=== PATIENT | female | born 1980 | race Asian ===

== ENCOUNTER → 2020-06-11 | Day surgery (SDC) | payer BC ==
--- NOTE | 2020-06-11 09:07 | MMO ---
MAMMOGRAPHIC GUIDED STEREOTACTIC BREAST BIOPSY PREPROCEDURE DIAGNOSIS: Right breast calcifications PROCEDURE: 1. Stereotactic biopsy of right breast calcifications with vacuum assistance 2. Specimen radiograph 3. Post procedure mammogram FILLER FEEDER: Salomon ANESTHESIA: 11 mL of buffered 1% lidocaine with epinephrine SPECIMEN: 18 -10-gauge vacuum-assisted core biopsy specimens TECHNIQUE: Prior to the procedure, the risks and benefits of stereotactic biopsy of the suspicious breast calcif ications were explained with the patient and full consent was obtained. The prior mammograms were reviewed showing calcifications in the upper inner right breast. The calcifications were localized with the stereotactic machine with approach from medial. The breast was prepped with Betadine. Lidocaine was used to anesthetize the skin and tissues surrounding the biopsy site. A skin incision was made to allowing for passage of the 10-gauge vacuum-assisted biopsy device. This device was then placed using stereotactic guidance into the region of the calcifications. 18 core biopsies were then performed. A specimen radiograph showed calcifications within at least one of the specimens. A biopsy clip was then placed at the biopsy site. A postprocedure mammogram showed the clip in the po sterior superior breast approximately 5 cm lateral to the biopsy site which showed air on the postprocedure mammogram. No residual suspicious calcifications were seen in the right breast on the i mages provided.
== END ==
LOC: MAMMO 06:51
PROVIDERS: ATTEND Family Medicine
PROC: 0H9T3ZX Drainage of Right Breast, Percutaneous Approach, Diagnostic (ICD-10-PCS; principal; 2020-06-11)
DX: N60.91 Unspecified benign mammary dysplasia of right breast (principal)
CPT/HCPCS: 19081; 76098; 88305; 88341; 88342